=== PATIENT | female | born 1955 | race Caucasian/White ===

== ENCOUNTER 2024-05-18 04:17 | Inpatient (IN) | payer OTHER, SELFPAY ==
[2024-05-17 20:26] VITALS: BP 116/79
[2024-05-17 20:51] LABS: % Basophils 0.4 % (0-2); % Eosinophils 0.3 % (0-6); % Immature Granulocytes 0.7 % (0-0.5); % Lymphocytes 3.5 % (20.5-51.1); % Neutrophils 89.1 % (42.2-75.2); Absolute Basophils 0.1 10^3/uL (0-0.2); Absolute Eosinophils 0.1 10^3/uL (0-0.7); Absolute Immature Granulocytes 0.1 10^3/uL (0-0.05); Absolute Lymphocytes 0.6 10^3/uL (1.2-3.4); Absolute Neutrophils 14.7 10^3/uL (1.4-6.5); Hematocrit 44.7 % (37.0-47.0); Hemoglobin 14.4 g/dL (12.0-16.0); Mean Corp Hgb Conc. 32.2 g/dL (33.0-37.0); Mean Corpuscular Hgb 29.1 pg (27.0-31.0); Mean Corpuscular Volume 90.5 fL (81.0-99.0); Mean Platelet Volume 9.7 fL (7.4-10.4); Nucleated Red Blood Cells % 0 %; Platelet Count 232 10^3/uL (130-400); Red Blood Cell Count 4.94 10^6/uL (4.20-5.40); Red Cell Dist. Width 13.2 % (11.5-14.5); White Blood Cell Count 16.4 10^3/uL (4.8-10.8)
[2024-05-17 21:15] LABS: NT-proBNP 118 pg/ml; Troponin I 0.021 ng/ml
[2024-05-17 21:18] LABS: ALT (SGPT) 38 U/L (0-35); AST (SGOT) 30 U/L (14-36); Albumin 3.7 g/dl (3.5-5.0); Alkaline Phosphatase 105 U/L (38-126); Blood Urea Nitrogen 23 mg/dl (7-17); Calcium 8.6 mg/dl (8.4-10.2); Carbon Dioxide 25 mmol/L (22-30); Chloride 100 mmol/L (98-107); Glucose 166 mg/dl (70-99); Potassium 4.6 mmol/L (3.5-5.1); Sodium 131 mmol/L (135-145); Total Bilirubin 0.6 mg/dl (0.2-1.3); Total Protein 6.4 g/dl (6.3-8.2); eGFR > 60.00
[2024-05-18] VITALS (15 sets, daily range): BP systolic 139–173; BP diastolic 61–100; BMI 32.5; BMI 32.7
[2024-05-18] MEDS: MORPHINE SULFATE 4 MG IV (00:30)
[2024-05-18] MEDS: TORADOL 15 MG IV ×2 (01:12→19:57)
[2024-05-18] MEDS: MAXIPIME 2000 MG IV (02:33)
--- NOTE | 2024-05-18 03:08 | ED.GENMED ---
History of Present Illness
General
Chief Complaint: Breathing Problem
Source: patient and spouse
Time Seen by Provider: 05/17/24 23:04
History of Present Illness
History of Present Illness:
68-year-old female with a history of rheumatoid arthritis on prednisone who presents with pleuritic pain to the left side. She states she feels a little bit short of breath but notes significant pain on the left side. states she has been
coughing. No fevers. Is a diabetic.
Past History
Past History
ED Past Medical History: NIDDM and Other (Rheumatoid arthritis, GERD)
Phy Exam
Physical Exam
Physical Exam:
CONSTITUTIONAL Patient alert and oriented to person, place and time. Well-appearing. Vital signs reviewed.
HEAD atraumatic, normocephalic.
EYES eyelids normal to inspection, Extraocular muscles intact, Conjunctiva normal, Sclera normal.
NECK normal range of motion, Trachea midline, no jugular venous distention.
RESPIRATORY CHEST No respiratory distress noted, Chest expansion equal, crackles at the left base
CARDIOVASCULAR regular and tachycardic, Heart sounds normal.
ABDOMEN abdomen nontender, Bowel sounds normal. No distention.
BACK normal inspection, no obvious deformities
UPPER EXTREMITY range of motion normal, Motor strength normal, no cyanosis, no edema.
LOWER EXTREMITY range of motion normal, Motor strength normal, no cyanosis, no edema.
NEURO Speech normal, No focal motor deficits, [place] coma scale 15, Memory normal, Cranial Nerves intact to screening exam.
SKIN skin warm, dry, and normal in color.
Scores
Heart Failure Risk
Heart Failure Risk Score: Not Applicable
Course
Orders/Labs/Results
Orders:
Orders
05/17/24 20:34
Electrocardiogram (*1) Urgent
Reason for Study: Other
Other Reason for Exam: Respiratory Distress
Cardiac Monitoring- Treatment ONCE
EKG- Treatment ONCE
IV Insert/Care/Rem.- Treatment PRN
CR Chest - 2 Views Urgent
Comment:
Reason For Exam: respiratory distress
O2 Therapy [RESP] Urgent
Titrate/Wean O2 to maintain O2 sat greater than (%): 93
Special Instructions: TO MAINTAIN CONTINUOUS O2 SATS >/= 93%
Pulse Ox/cont/shift [RESP] Urgent
Quantity: 1
Special Instructions: continuous pulse ox
05/17/24 20:43
Complete Blood Count/With Diff Urgent
Comprehensive Metabolic Panel Urgent
NT-proBNP Urgent
Troponin I Urgent
05/18/24 00:11
CT Chest PE Study Urgent
Comment:
Reason For Exam: L pleuritic pain, sob, tachycardia
Morphine Sulfate 4 mg IV NOW STA
05/18/24 01:03
Ketorolac [Toradol] 15 mg IV NOW STA
05/18/24 02:15
Cefepime HCl [Maxipime] 2,000 mg IV NOW STA
05/18/24 03:24
Vancomycin [Vancocin] 2,000 mg 0.9% Sodium Chloride 500 ml [Nss] 500 ml IV NOW
05/18/24 03:58
Admit/Transfer Patient As Directed
Co-Sign Provider:
Level of Care: Inpatient admission
Assign to:: Telemetry
Physician / Group: Ramone
Diagnosis: Pneumonia, Pleurisy
Reason for Telemetry: Chest Pain syndromes
Date to Stop Telemetry: 05/20/24
Time to Stop Telemetry: 11:00
Reason for Hospitalization: Pneumonia, Pleurisy
Expected length of stay greater than two midnights?: Yes
ELOS- Estimated Length of Stay in days: 3
I certify the patient meets the requirements for IP care: Yes
HYDROmorphone [Dilaudid] 1 mg IV NOW STA
05/18/24 03:59
Code Status As Directed
Resuscitation Status: Full Code
PRN Pain Medication Management As Directed
May give lesser potent ordered pain med per pt: Yes
preference::
Protocol:: Medication orders for pain may be administered in a
manner that supports deferring to patient preference
when the pt is:
- Requesting an ordered lesser potent pain medication.
Least to most potent pain medications are defined
as: acetaminophen < NSAID < tramadol < opioids
(morphine, oxycodone, hydromorphone).
- Requesting a lesser dose of the same medication IF
ORDERED.
- Requesting a less intrusive route of administration
if both routes are prescribed by the provider (PO <
IV).
05/18/24 05:06
COVID-19 Antigen Urgent
Source: Nasal Swab
Lactic Acid Q4H
Comment: CANCEL 2nd LACTIC ACID IF 1st LACTIC ACID IS LESS THAN 2
Blood Culture Q30M
UZMA Source: Blood/Venous
Specimen Description:
Influenza A+B Rapid Molecular Urgent
UZMA Source: Nasal Swab
Specimen Description:
05/18/24 05:07
Erythrocyte Sed Rate Routine
05/18/24 05:38
Urinalysis Reflex To Culture Urgent
Date Specimen was Collected: 05/18/24
Time Specimen was Collected: 05:26
05/18/24 Breakfast
2000 calorie (17 carb) Diabetic
At Your Request: Full Participation
Does patient need a safe tray?: No
05/18/24 06:11
0.9% Sodium Chloride 1000 ml [Nss] 1,000 ml IV 100 mls/hr
Acetaminophen [Tylenol] 650 mg PO Q4HPRN PRN
Albuterol Nebs [Ventolin Nebules] 2.5 mg INH R Q4HPRN PRN
Dextrose 50%-Water [Dextrose 50% Syringe] 12.5 grams IV [id number] PRN
Glucagon [GlucaGen] 1 mg IM PRN PRN
HYDROmorphone [Dilaudid] 0.5 mg IV Q4HPRN PRN
Ketorolac [Toradol] 15 mg IV Q6HPRN PRN
05/18/24 06:11
Activity As Directed
Activity Level: Ambulate
With Assistance
Bedside Glucose Monitoring As Directed
Frequency: AC&HS
Additional Instructions:: Change to q6h if pt on TPN, tube feeding or not eating
EKG with chest pain [ECG as needed] As Directed
ECG as needed for:: Chest Pain
I/O [Intake/ Output] As Directed
Frequency: Per unit guidelines
Vital Signs As Directed
Frequency: Per unit guidelines
Weight As Directed
Frequency: Daily
Oxygen Therapy [O2 Therapy] [RESP] Routine
Titrate/Wean O2 to maintain O2 sat greater than (%): 94
DX Deep Vein Thrombosis Video Routine
05/18/24 07:30
Insulin Aspart Corrective Low [Novolog Flexpen-Low Resistance] See Protocol SC AC
05/18/24 08:00
Doxycycline [Vibramycin] 100 mg PO Q12
Prednisone [Deltasone] 5 mg PO DAILY
05/18/24 10:00
CefTRIAXone [Rocephin] 1,000 mg IV Q24H
05/18/24 18:00
Enoxaparin Sodium [Lovenox] 40 mg SC QPM
05/18/24 22:00
Zolpidem Tartrate [Ambien] 10 mg PO HS
05/20/24 11:00
DC Protocol for Telemetry ONCE
Abnormal Lab Results
05/17/24
20:43
WBC 16.4 H 10^3/uL
(4.8-10.8)
MCHC 32.2 L g/dL
(33.0-37.0)
Abs Immat Gran (auto) 0.1 H 10^3/uL
(0-0.05)
Absolute Neuts (auto) 14.7 H 10^3/uL
(1.4-6.5)
Absolute Lymphs (auto) 0.6 L 10^3/uL
(1.2-3.4)
Absolute Monos (auto) 1.0 H 10^3/uL
(0.1-0.6)
Immature Gran % 0.7 H %
(0-0.5)
Neutrophils % 89.1 H %
(42.2-75.2)
Lymphocytes % 3.5 L %
(20.5-51.1)
Sodium 131 L mmol/L
(135-145)
BUN 23 H mg/dl
(7-17)
Glucose 166 H mg/dl
(70-99)
ALT 38 H U/L
(0-35)
05/17/24 20:43
05/17/24 20:43
Vital Signs
Initial and Last Documented VS:
Initial Vital Signs
Temp Pulse Resp BP Pulse Ox
98.4 F 114 20 116/79 97
05/17/24 20:26 05/17/24 20:26 05/17/24 20:26 05/17/24 20:26 05/17/24 20:26
Last Documented Vital Signs
Temp Pulse Resp BP Pulse Ox
98.0 F 101 16 173/91 94
05/18/24 23:00 05/18/24 23:00 05/18/24 23:00 05/18/24 23:00 05/18/24 23:00
MDM/Problems Addressed
Differential Diagnosis Includes:
PE, pleural effusion, CHF, pneumonia, pneumothorax
MDM/Problems Addressed:
Bilateral pneumonia
*Radiology
Radiology exam reviewed: preliminary read by ED provider (Infiltrative process noted)
*Pulse Oximetry
Patient hypoxic: yes
*[employer] Interpretation
Rate: tachycardiac
Interpretation: abnormal
Rhythm: sinus
*Critical Care Note
Total Time (30-74mins, 75-104mins- exclusive of procedures): Not Applicable
Data Reviewed
Source: patient and spouse
Prescriptions/Medications Considered But Not Given:
Consider anticoagulation but negative PE study
Patient Management
Discussion with other providers: Hospitalist
Escalation/DeEscalation of care consider admission/obs:
No PE. Infiltrative process noted with white count of 16.4. Is on prednisone daily. She is at risk due to her history of diabetes and prednisone therapy with treatment for rheumatoid arthritis. IV antibiotics. Admit
ED Attending Note
-
Portions of this chart may have been created with voice recognition software.� Occasional wrong word or��sound alike� substitutions may have occurred due to the inherent limitations of voice recognition software.
Discharge Plan
Departure
Patient Disposition: Admit
Date of Disposition: 05/18/24
Time of Disposition: 03:11
Admit to: Telemetry
Presentation/result/management discussed w/ accepting MD/DO: Hospitalist
Discharge Problem:
Pneumonia
Interventions
Interventions:
*Risk Screen - Suicide Last Done: 05/17/24 20:26
*General Assessment Last Done: 05/17/24 20:26
*Neglect/Abuse Screening Last Done: 05/17/24 20:26
ED- Fall Risk Assessment Last Done: 05/17/24 20:26
*ED COVID-19 Vaccine History Last Done: 05/17/24 20:26
*Nursing Disposition Last Done: 05/18/24 14:25
ED- Cardiac Assessment Last Done: 05/18/24 00:04
ED- Pulmonary Assessment Last Done: 05/18/24 00:05
[2024-05-18] MEDS: VANCOCIN 540 MG IV (03:32)
--- NOTE | 2024-05-18 04:06 | HPS.HSE ---
Family Physician
-
Family Physician: Kim Logan
Chief Complaint
-
Chest Pain
History of Present Illness
Patient is a 68y F with PMH significant for DM-II and RA who presents to ED complaining of left sided chest pain. Patient states that she has had a mild, non-productive cough for about a week or so. She has not felt ill including fevers /
chills, SOB, etc. This afternoon around 4 PM, she developed sharp, stabbing pain in the L flank / chest. Pain was much worse with breathing, coughing, movement, etc. Her symptoms progressed throughout the afternoon and patient ultimately
presented to the ED for evaluation. She feels SOB due to inability to take a full breath. She denies any prior history of similar symptoms. She denies any known sick contacts.
No GI or complaints.
Medical History
Past Medical History
Past Medical History: Reports Other
Additional Past Medical History:
Rheumatoid Arthritis
DM-II
Breast Cancer s/p Lumpectomy and XRT (> 5 years removed)
Past Surgical History: Reports Other
Additional Past Surgical History:
Right Lumpectomy
Trigeminal Nerve Surgery
Social History
Tobacco: Former Smoker (Quit smoking 20+ years ago. Approx 20+ pack years total use.)
Alcohol: None
Drug: None
Personal:
Living: With Family
Family History
Family History: Not pertinent
Allergies / Home Medications
Allergies reflects when Allergies were last updated in [facility].
Home Medications with original date entered in [facility]
Allergy/Medication List:
Allergies
Allergy/AdvReac Type Severity Reaction Status Date / Time
Penicillins Allergy Unknown Verified 05/17/24 20:25
Home Medications
leflunomide 20 mg tablet 40 mg PO DAILY 05/18/24
pioglitazone 30 mg tablet 30 mg PO DAILY 05/18/24
prednisone 5 mg tablet 5 mg PO DAILY 05/18/24
zolpidem 12.5 mg tablet,extended release,multiphase 12.5 mg PO HS 05/18/24
Review of Systems
-
History Source: Patient
A 12 point ROS was completed and negative except as noted: Yes
Constitutional: Denies Fever, Fatigue or Chills
EENT: Denies Sore Throat
Respiratory: Reports Cough and Trouble Breathing; Denies Hemoptysis
Cardiac: Reports Chest Pain; Denies Diaphoresis, Palpitations or Syncope
Abdomen/GI: Denies Abdominal Pain, Nausea, Vomiting, Diarrhea or Bloody Stools
: Reports Flank Pain; Denies Dysuria or Frequency
Musculoskeletal: Denies Joint Pain or Edema
Neurological: Denies Dizzy or Headache
Psych: Denies Depression or Anxiety
Physical Exam
Vital Signs
Vital Signs
Temp Pulse Resp BP Pulse Ox
98.4 F 111 19 150/83 91
05/17/24 20:26 05/18/24 03:15 05/18/24 03:15 05/18/24 03:00 05/18/24 03:15
Physical Exam
General: Other (68y F in moderate distress due to pain.)
HEENT: Moist mucous membranes and PERRLA
Respiratory: Other (Decreased BS with few rales at both bases. Decreased inspiratory effort due to pain.)
Cardiac: S1/S2 and Tachycardia; No Murmur
GI: Soft, Non Tender, Non Distended and Normal Bowel Sounds
Musculoskeletal: No Clubbing, No Cyanosis and No Edema
Neuro: AO x 3
Laboratory Results
-
05/17/24 20:43
05/17/24 20:43
Laboratory Results
Total Bilirubin 0.6 mg/dl (0.2-1.3) 05/17/24 20:43
AST 30 U/L (14-36) 05/17/24 20:43
ALT 38 U/L (0-35) H 05/17/24 20:43
Alkaline Phosphatase 105 U/L (38-126) 05/17/24 20:43
Troponin I 0.021 ng/ml 05/17/24 20:43
Impression/Plan
-
A/P: Patient is a 68y F with PMH significant for RA and DM-II who presents to ED complaining of L chest pain.
LLL Pneumonia
Sepsis secondary to the above
Pleuritic Pain secondary to the above
- Admit for further evaluation and treatment.
- Patient presents with tachycardia, tachypnea, leukocytosis and imaging consistent with L base pneumonia.
- CT in the ED with L > R base infiltrate.
- Abx with ceftriaxone and doxycycline for now.
- Supportive care including pain control, anti-inflammatories, etc.
- Check COVID / flu for completeness.
- Follow for clinical improvement.
Rheumatoid Arthritis
- Stable. No current joint pains, etc.
- Continue usual prednisone dose with no changes.
- Consider stress dosing if any evidence of hemodynamic compromise.
- Hold leflunomide given acute infection.
DM-II
- Stable. Hold PO medication acutely.
- Follow glucose and cover with SSI as needed.
- Update A1C.
DVT Prophylaxis: Lovenox
Code Status: Full
[2024-05-18] MEDS: DILAUDID 1 MG IV (05:08)
[2024-05-18 05:49] LABS: COVID-19 Antigen Negative (Negative)
[2024-05-18 05:54] LABS: Lactic Acid 1.6 mmol/L (0.7-2.0)
[2024-05-18 06:21] LABS: Urine Albumin Trace (Neg - Trace); Urine Bilirubin Negative (Negative); Urine Character Clear (Clear); Urine Color Yellow; Urine Glucose Trace (Negative); Urine Ketone Negative (Negative); Urine Leukocyte Negative (Negative); Urine Nitrite Positive (Negative); Urine Occult Blood Negative (Negative); Urine Urobilinogen Negative (Neg - 1+)
[2024-05-18 06:37] LABS: Erythrocyte Sed Rate 34 mm/hour (0-20)
[2024-05-18] MEDS: NSS 1000 IV (06:41)
[2024-05-18 07:02] LABS: Urine Squamous Cell >30 /LPF (Few)
[2024-05-18 07:03] LABS: Urine Bacteria Few (Negative)
--- NOTE | 2024-05-18 08:11 | W.PN.HOSP.TC ---
Addendum entered and electronically signed by Franck Leyva MD 05/18/24 10:26:
#Acute uncomplicated diverticulitis
stop Ceftriaxone - start Zosyn
Colonoscopy in 6-8 weeks
Original Note:
Today's Communication/Plan
-
See PN
Assessment / Plan
Assessment / Plan
68yo F with PMHx of insomnia, RA on lefunomide and chronic prednisone, DM came with c/o cough for 5 days and subsequent strong L subcostal pain, pleuritic, poorly responding to pain meds in ED. Managed for possible pneumonia with L small pleural
effusion
A/P:
#Possible bibasilar pneumonia
Ceftriaxone/Rocephin
COVID-19 and influenza neg
Check Legionella, s.peumonia urinary Ag
Sputum Cx if possible
CT reviewed - significant patchy opacification on LLL of the lung
leukocytosis is unreliable indicator with chronic prednisone
#L subcostal pain
radiating to L flanck and groin, pleuritic
Abd CT without contrast with concern for nephrolithiasis as well
Pain mgmt
CT chest without significant osseous abnormality - only bone island on thoracic spine
dedicated rib XR
#Cannot r/o UTI
cont Ceftriaxone pending Ucx
#RA
cont home meds
#mild ALT elevation
follow LFT
#mild hyponatremia
follow BMP
DVT ppx lovenox
GI ppx pantoprazole
Full code
I have spent at least 59min reviewing the chart, test results and providing direct patient care
Anticipated Discharge: 24 - 48 hours
Subjective/Interval History
-
Date of Service: May 18, 2024
Objective Data
-
Labs:
Laboratory Results
05/17/24
20:43
WBC 16.4 H
Hgb 14.4
Hct 44.7
Plt Count 232
Sodium 131 L
Potassium 4.6
Chloride 100
Carbon Dioxide 25
BUN 23 H
Creatinine 0.7
Glucose 166 H
Calcium 8.6
Total Bilirubin 0.6
AST 30
ALT 38 H
Alkaline Phosphatase 105
Vital Signs:
Vital Signs
Temp Pulse Resp BP Pulse Ox
98 F 109 15 144/78 91
05/18/24 07:59 05/18/24 07:45 05/18/24 07:45 05/18/24 07:00 05/18/24 03:15
I&O
05/17/24 05/18/24 05/19/24
06:59 06:59 06:59
Intake Total 1120 / 1120
Balance 1120 / 1120
Review of Systems
-
History Source: Patient
All other systems: Reviewed and negative
Respiratory: Reports Pleurisy (L)
Physical Exam
-
General: Well Developed and Pain
HEENT: Normocephalic
Respiratory: Clear to Auscultation
GI: Soft, Nondistended and Tender (LLQ)
Genito-urinary: Costovertebral Angle Tend (L)
Musculoskeletal: No Clubbing, No Cyanosis and No Edema
Skin: Warm
Neuro: Awake, Alert, Oriented and AO x 3
Psych: Calm
[2024-05-18 09:14] LABS: Glucose - Point of Care 181 mg/dl (70-99)
[2024-05-18] MEDS: DELTASONE 5 MG PO (10:38)
[2024-05-18] MEDS: VIBRAMYCIN 100 MG PO ×2 (10:38→19:53)
[2024-05-18] MEDS: NOVOLOG FLEXPEN-LOW RESISTANCE 1 UNITS SC (10:38)
[2024-05-18] MEDS: ZOSYN 50 IV ×3 (12:04→23:02)
[2024-05-18 13:44] LABS: Glucose - Point of Care 146 mg/dl (70-99)
[2024-05-18] MEDS: NOVOLOG FLEXPEN-LOW RESISTANCE SC ×2 (13:44→17:35)
--- NOTE | 2024-05-18 14:53 | PTCARENOTE ---
Received pt from ED @ 5075. Pt ambulated from stretcher to bed without assist. AAOx3, VSS.
[2024-05-18] MEDS: ZOFRAN 4 MG IV (16:06)
[2024-05-18] MEDS: DILAUDID 0.5 MG IV (16:07)
[2024-05-18 16:57] LABS: Glucose - Point of Care 101 mg/dl (70-99)
[2024-05-18] MEDS: LOVENOX 40 MG SC (17:38)
[2024-05-18 21:14] LABS: Glucose - Point of Care 126 mg/dl (70-99)
[2024-05-18] MEDS: AMBIEN 10 MG PO (23:02)
[2024-05-19 03:00] VITALS: BP 179/94
[2024-05-19] MEDS: ZOFRAN 4 MG IV (04:24)
[2024-05-19] MEDS: DILAUDID 0.5 MG IV (04:25)
[2024-05-19 06:17] VITALS: BMI 32.7
[2024-05-19] MEDS: ZOSYN 50 IV ×4 (06:34→23:03)
[2024-05-19 07:06] LABS: % Basophils 0.5 % (0-2); % Immature Granulocytes 0.9 % (0-0.5); % Lymphocytes 12.8 % (20.5-51.1); % Monocytes 9.4 % (1.7-9.3); % Neutrophils 73.4 % (42.2-75.2); Absolute Basophils 0.1 10^3/uL (0-0.2); Absolute Eosinophils 0.3 10^3/uL (0-0.7); Absolute Immature Granulocytes 0.1 10^3/uL (0-0.05); Absolute Lymphocytes 1.3 10^3/uL (1.2-3.4); Absolute Neutrophils 7.5 10^3/uL (1.4-6.5); Hematocrit 38.5 % (37.0-47.0); Hemoglobin 12.6 g/dL (12.0-16.0); Mean Corp Hgb Conc. 32.7 g/dL (33.0-37.0); Mean Corpuscular Hgb 29.5 pg (27.0-31.0); Mean Corpuscular Volume 90.2 fL (81.0-99.0); Mean Platelet Volume 9.9 fL (7.4-10.4); Nucleated Red Blood Cells % 0 %; Platelet Count 197 10^3/uL (130-400); Red Blood Cell Count 4.27 10^6/uL (4.20-5.40); Red Cell Dist. Width 13.4 % (11.5-14.5); White Blood Cell Count 10.2 10^3/uL (4.8-10.8)
[2024-05-19 07:24] VITALS: BP 140/75
[2024-05-19 07:42] LABS: Procalcitonin 0.19 ng/ml (0.0-0.25)
[2024-05-19 08:00] LABS: Glucose - Point of Care 116 mg/dl (70-99)
[2024-05-19] MEDS: VIBRAMYCIN 100 MG PO ×2 (08:06→19:54)
[2024-05-19] MEDS: NOVOLOG FLEXPEN-LOW RESISTANCE SC ×3 (08:06→16:47)
[2024-05-19] MEDS: PROTONIX 40 MG PO (08:06)
[2024-05-19] MEDS: DELTASONE 5 MG PO (08:06)
--- NOTE | 2024-05-19 11:19 | W.PN.HOSP.TC ---
Today's Communication/Plan
-
cont Zosyn/Doxy
repeat XR in AM - if persistent effusion - patient will be agreeable for thoracentesis
Assessment / Plan
Assessment / Plan
68yo F with PMHx of insomnia, RA on lefunomide and chronic prednisone, DM came with c/o cough for 5 days and subsequent strong L subcostal pain, pleuritic, poorly responding to pain meds in ED. Managed for possible pneumonia with L small pleural
effusion
A/P:
#Possible bibasilar pneumonia with small L pleural effusion
Abx
COVID-19 and influenza neg
Check Legionella, s.pneumonia urinary Ag
Sputum Cx if possible
CT reviewed - significant patchy opacification on LLL of the lung with small effusion - serial Xr, if persist, might need thoracentesis
leukocytosis is unreliable indicator with chronic prednisone
#Acute uncomplicated diverticulitis
stop Ceftriaxone - start Zosyn
Colonoscopy in 6-8 weeks
#L subcostal pain
PE neg
#UTI ruled out
Ucx neg
#RA
cont home meds
#mild ALT elevation
follow LFT
#mild hyponatremia
follow BMP
DVT ppx lovenox
GI ppx pantoprazole
Full code
I have spent at least 39min reviewing the chart, test results and providing direct patient care
Anticipated Discharge: > 48 hours
Subjective/Interval History
-
Date of Service: May 19, 2024
Objective Data
-
Labs:
Laboratory Results
05/19/24
06:58
WBC 10.2
Hgb 12.6
Hct 38.5
Plt Count 197
Vital Signs:
Vital Signs
Temp Pulse Resp BP Pulse Ox
97.8 F 101 18 140/75 92
05/19/24 07:24 05/19/24 07:24 05/19/24 07:24 05/19/24 07:24 05/19/24 07:24
I&O
05/18/24 05/19/24 05/20/24
06:59 06:59 06:59
Intake Total 1120 / 1120 1440 / 1440
Balance 1120 / 1120 1440 / 1440
[2024-05-19 11:33] VITALS: BP 172/98
[2024-05-19 11:55] LABS: Glucose - Point of Care 143 mg/dl (70-99)
[2024-05-19] MEDS: TORADOL 15 MG IV (13:36)
--- NOTE | 2024-05-19 14:09 | CM ---
Patient seen at bedside
IA completed.
Lives in a 1 story home with , 1 step to enter
PLOF: independent, no device
Denies DME
Uli BUNN in past, denies rehab
denies insecurities
no needs anticipated
PCP: Desirae Logan
Pharmacy: [facility]
PLAN: home, no needs anticipated
[2024-05-19 15:29] VITALS: BP 129/68
[2024-05-19 16:16] LABS: Glucose - Point of Care 128 mg/dl (70-99)
[2024-05-19] MEDS: LOVENOX 40 MG SC (17:45)
[2024-05-19 19:32] VITALS: BP 146/74
[2024-05-19] MEDS: AMBIEN 10 MG PO (21:21)
[2024-05-19 21:24] LABS: Glucose - Point of Care 122 mg/dl (70-99)
[2024-05-19 23:00] VITALS: BP 149/83
[2024-05-20] MEDS: DILAUDID 0.5 MG IV (02:56)
[2024-05-20 03:01] VITALS: BP 143/80
[2024-05-20] MEDS: ZOFRAN 4 MG IV (03:01)
[2024-05-20] MEDS: ZOSYN 50 IV ×4 (05:01→23:33)
[2024-05-20 06:00] VITALS: BMI 32.0
[2024-05-20 07:42] VITALS: BP 141/83
[2024-05-20 08:11] LABS: Glucose - Point of Care 124 mg/dl (70-99)
[2024-05-20 08:29] LABS: % Basophils 0.6 % (0-2); % Eosinophils 4.3 % (0-6); % Lymphocytes 15.3 % (20.5-51.1); % Monocytes 8.2 % (1.7-9.3); % Neutrophils 70.6 % (42.2-75.2); Absolute Basophils 0.1 10^3/uL (0-0.2); Absolute Eosinophils 0.4 10^3/uL (0-0.7); Absolute Immature Granulocytes 0.1 10^3/uL (0-0.05); Absolute Lymphocytes 1.4 10^3/uL (1.2-3.4); Absolute Monocytes 0.7 10^3/uL (0.1-0.6); Absolute Neutrophils 6.2 10^3/uL (1.4-6.5); Hematocrit 39.6 % (37.0-47.0); Hemoglobin 12.5 g/dL (12.0-16.0); Mean Corp Hgb Conc. 31.6 g/dL (33.0-37.0); Mean Corpuscular Hgb 28.9 pg (27.0-31.0); Mean Corpuscular Volume 91.5 fL (81.0-99.0); Mean Platelet Volume 10.4 fL (7.4-10.4); Nucleated Red Blood Cells % 0 %; Platelet Count 226 10^3/uL (130-400); Red Blood Cell Count 4.33 10^6/uL (4.20-5.40); Red Cell Dist. Width 13.2 % (11.5-14.5); White Blood Cell Count 8.8 10^3/uL (4.8-10.8)
[2024-05-20] MEDS: NOVOLOG FLEXPEN-LOW RESISTANCE SC (08:29)
[2024-05-20] MEDS: VIBRAMYCIN 100 MG PO ×2 (08:30→21:28)
[2024-05-20] MEDS: PROTONIX 40 MG PO (08:30)
[2024-05-20] MEDS: DELTASONE 5 MG PO (08:31)
[2024-05-20] MEDS: TYLENOL 650 MG PO (08:36)
[2024-05-20 09:07] LABS: ALT (SGPT) 49 U/L (0-35); AST (SGOT) 34 U/L (14-36); Albumin 2.8 g/dl (3.5-5.0); Alkaline Phosphatase 99 U/L (38-126); Blood Urea Nitrogen 19 mg/dl (7-17); Calcium 8.1 mg/dl (8.4-10.2); Carbon Dioxide 27 mmol/L (22-30); Chloride 101 mmol/L (98-107); Estimated Creatinine Clearance 86 ml/min; Glucose 101 mg/dl (70-99); Potassium 4.3 mmol/L (3.5-5.1); Sodium 135 mmol/L (135-145); Total Bilirubin 0.7 mg/dl (0.2-1.3); Total Protein 5.1 g/dl (6.3-8.2); eGFR > 60.00
[2024-05-20 09:32] VITALS: BP 161/83; PULSE 105; O2SAT 94
[2024-05-20 11:05] VITALS: BP 155/83
[2024-05-20 11:18] LABS: Glucose - Point of Care 214 mg/dl (70-99)
[2024-05-20] MEDS: LIDOCAINE 4% PATCH 1 PATCH TOPICAL (12:34)
[2024-05-20] MEDS: NOVOLOG FLEXPEN-LOW RESISTANCE 2 UNITS SC (12:39)
--- NOTE | 2024-05-20 13:26 | W.PN.HOSP.TC ---
Today's Communication/Plan
-
Monitor vital signs see plan
Pain control
Continue with antibiotics
check MRSA screen
Assessment / Plan
Assessment / Plan
68yo F with PMHx of insomnia, RA on lefunomide and chronic prednisone, DM came with c/o cough for 5 days and subsequent strong L subcostal pain, pleuritic, poorly responding to pain meds in ED. Managed for possible pneumonia with L small pleural
effusion
A/P:
#Possible bibasilar pneumonia with small L pleural effusion
Abx
COVID-19 and influenza neg
Legionella, strep negative
Sputum Cx if possible
CT reviewed - significant patchy opacification on LLL of the lung with small effusion -x-ray of 05/20 very tiny little effusion however much improved. Advised patient to follow-up with repeat imaging outpatient and if does not improve then likely
will need Thora
leukocytosis is unreliable indicator with chronic prednisone
Lidocaine patch
check MRSA screen
#Acute uncomplicated diverticulitis
Continue Zosyn
Colonoscopy in 6-8 weeks
#L subcostal pain
PE neg
#UTI ruled out
Ucx neg
#RA
cont home meds
#mild ALT elevation
follow LFT
#mild hyponatremia
follow BMP
DVT ppx lovenox
GI ppx pantoprazole
Full code
General: Well Developed and Pain
HEENT: Normocephalic
Respiratory: Clear to Auscultation
GI: Soft, Nondistended and Tender (LLQ)
Genito-urinary: Costovertebral Angle Tend (L)
Musculoskeletal: No Clubbing, No Cyanosis and No Edema
Skin: Warm
Neuro: Awake, Alert, Oriented and AO x 3
Psych: Calm
Anticipated Discharge: 24 - 48 hours
Subjective/Interval History
-
Date of Service: May 20, 2024
Still has some pleuritic chest pain
Objective Data
-
Labs:
Laboratory Results
05/20/24
06:48
WBC 8.8
Hgb 12.5
Hct 39.6
Plt Count 226
Sodium 135
Potassium 4.3
Chloride 101
Carbon Dioxide 27
BUN 19 H
Creatinine 0.8
Glucose 101 H
Calcium 8.1 L
Total Bilirubin 0.7
AST 34
ALT 49 H
Alkaline Phosphatase 99
Vital Signs:
Vital Signs
Temp Pulse Resp BP Pulse Ox
97.8 F 92 19 155/83 96
05/20/24 11:05 05/20/24 11:05 05/20/24 11:05 05/20/24 11:05 05/20/24 11:05
I&O
05/19/24 05/20/24 05/21/24
06:59 06:59 06:59
Intake Total 1440 / 1440 760 / 760
Balance 1440 / 1440 760 / 760
[2024-05-20 15:18] VITALS: BP 149/69
[2024-05-20 16:21] LABS: Glucose - Point of Care 172 mg/dl (70-99)
[2024-05-20] MEDS: NOVOLOG FLEXPEN-LOW RESISTANCE 1 UNITS SC (17:38)
[2024-05-20] MEDS: LOVENOX 40 MG SC (17:39)
[2024-05-20] MEDS: AMBIEN 10 MG PO (21:27)
[2024-05-20 21:30] LABS: Glucose - Point of Care 127 mg/dl (70-99)
[2024-05-20] MEDS: ULTRAM 25 MG PO (21:36)
[2024-05-20 22:55] VITALS: BP 123/85
[2024-05-21] MEDS: ZOSYN 50 IV ×4 (05:47→23:13)
[2024-05-21] MEDS: DILAUDID 0.5 MG IV (05:55)
[2024-05-21] MEDS: ZOFRAN 4 MG IV ×2 (05:57→20:15)
[2024-05-21 06:37] VITALS: BMI 31.7
[2024-05-21 07:37] VITALS: BP 110/80
[2024-05-21] MEDS: VIBRAMYCIN 100 MG PO ×2 (07:49→19:42)
[2024-05-21] MEDS: DELTASONE 5 MG PO (07:49)
[2024-05-21] MEDS: LIDOCAINE 4% PATCH 1 PATCH TOPICAL ×2 (07:49→11:02)
[2024-05-21] MEDS: PROTONIX 40 MG PO (07:49)
[2024-05-21] MEDS: TYLENOL 650 MG PO (07:56)
[2024-05-21 07:59] LABS: Glucose - Point of Care 120 mg/dl (70-99)
[2024-05-21] MEDS: NOVOLOG FLEXPEN-LOW RESISTANCE SC ×3 (08:07→17:16)
[2024-05-21 08:38] LABS: % Basophils 0.6 % (0-2); % Eosinophils 4.1 % (0-6); % Immature Granulocytes 1.4 % (0-0.5); % Lymphocytes 16.8 % (20.5-51.1); % Monocytes 7.9 % (1.7-9.3); % Neutrophils 69.2 % (42.2-75.2); Absolute Basophils 0.1 10^3/uL (0-0.2); Absolute Eosinophils 0.4 10^3/uL (0-0.7); Absolute Immature Granulocytes 0.1 10^3/uL (0-0.05); Absolute Lymphocytes 1.6 10^3/uL (1.2-3.4); Absolute Monocytes 0.8 10^3/uL (0.1-0.6); Absolute Neutrophils 6.6 10^3/uL (1.4-6.5); Hematocrit 42.2 % (37.0-47.0); Hemoglobin 13.6 g/dL (12.0-16.0); Mean Corp Hgb Conc. 32.2 g/dL (33.0-37.0); Mean Corpuscular Hgb 29.3 pg (27.0-31.0); Mean Corpuscular Volume 90.9 fL (81.0-99.0); Mean Platelet Volume 10.4 fL (7.4-10.4); Nucleated Red Blood Cells % 0 %; Platelet Count 254 10^3/uL (130-400); Red Blood Cell Count 4.64 10^6/uL (4.20-5.40); Red Cell Dist. Width 13.3 % (11.5-14.5); White Blood Cell Count 9.5 10^3/uL (4.8-10.8)
[2024-05-21 09:05] LABS: Blood Urea Nitrogen 18 mg/dl (7-17); Carbon Dioxide 28 mmol/L (22-30); Chloride 100 mmol/L (98-107); Estimated Creatinine Clearance 98 ml/min; Glucose 118 mg/dl (70-99); Potassium 3.9 mmol/L (3.5-5.1); Sodium 136 mmol/L (135-145); eGFR > 60.00
[2024-05-21] MEDS: ULTRAM 25 MG PO ×3 (11:01→21:39)
[2024-05-21 11:11] LABS: Glucose - Point of Care 183 mg/dl (70-99)
--- NOTE | 2024-05-21 11:57 | PN.CDI ---
CDI
- -
CDI:
Physician Documentation Request
Admit Date: 05/18/24 04:17
Dear Doctor,
Please review the following and provide your response in the progress notes.
Clinical Indicators:
Documentation in the H&P record on 05/18/2024 includes the diagnosis of sepsis. The following clinical information was noted in the record:
Pt admitted with pneumonia.
05/18 H&P: 'LLL Pneumonia-Sepsis secondary to the above.'
05/20 Progress Note: 'leukocytosis is unreliable indicator with chronic prednisone'
Selected Entries
05/18/24
01:00 05/18/24
04:00 05/18/24
05:00
Pulse 114 115 111
Resp Rate 28 27 23
Laboratory Tests
05/17/24
20:43
WBC 16.4 H
Recognized standard criteria for this condition and other associated definitions:
�Sepsis
-Systemic manifestations of infection, with 2 or more SIRS criteria which include:
-Fever > 100.4��F or hypothermia < 96.8��F
-Leukocytosis WBC > 12,000 or leukopenia, WBC < 4,000, or > 10% bands
-Tachycardia- > 90 beats/minute
-Tachypnea- RR > 20 breaths/minute or PaCO2 < 32mmHg
Source: Merck Manual 2013
-Documentation should include the known or suspected organism, and the underlying infection, such as UTI or pneumonia
Based on the above information and the recognized standard SIRS criteria, please clarify if sepsis is still an accurate diagnosis, and reflective of the patient�s condition, to ensure quality of the medical record.
Please clarify in the Progress Notes:
Sepsis is/was present and is a clinical diagnosis
After study sepsis has been ruled out
Other
Use of terms such as suspected, likely, concern for, or probable (associated with a specific diagnosis that is being evaluated, monitored, or treated as if it exists) are acceptable and can be coded in the inpatient setting, when documented at the
time of discharge.
Thank you,
Bernarda Gibbs RN, BSN
CDI Specialist
[place] [facility]
Please use your independent medical judgment in providing your response.
[2024-05-21] MEDS: MORPHINE SULFATE 1 MG IV ×2 (12:16→19:42)
--- NOTE | 2024-05-21 12:37 | W.PN.HOSP.TC ---
Today's Communication/Plan
-
Monitor vitals
See plan
Check x-ray abdomen
Make tramadol standing
Trial of morphine
Lidocaine patch
Assessment / Plan
Assessment / Plan
68yo F with PMHx of insomnia, RA on lefunomide and chronic prednisone, DM came with c/o cough for 5 days and subsequent strong L subcostal pain, pleuritic, poorly responding to pain meds in ED. Managed for possible pneumonia with L small pleural
effusion
A/P:
#Possible bibasilar pneumonia with small L pleural effusion
Sepsis on admission likely 2/2 above
Abx
COVID-19 and influenza neg
Legionella, strep negative
Sputum Cx if possible
CT reviewed - significant patchy opacification on LLL of the lung with small effusion -x-ray of 05/20 very tiny little effusion however much improved. Advised patient to follow-up with repeat imaging outpatient and if does not improve then likely
will need Thora
Suspect pleurisy secondary to atelectasis and pneumonia. Still in pain. Tramadol now standing. Trial of morphine.
leukocytosis is unreliable indicator with chronic prednisone
Lidocaine patch
check MRSA screen
pain control
#Acute uncomplicated diverticulitis
given she still has pain ordered xray abdomen
Continue Zosyn
Colonoscopy in 6-8 weeks
#L subcostal pain
PE neg
#UTI ruled out
Ucx neg
#RA
cont home meds
#mild ALT elevation
follow LFT
#mild hyponatremia
follow BMP
DVT ppx lovenox
GI ppx pantoprazole
Full code
General: Well Developed and Pain
HEENT: Normocephalic
Respiratory: Clear to Auscultation
GI: Soft, Nondistended and Tender (LLQ)
Genito-urinary: Costovertebral Angle Tend (L)
Musculoskeletal: No Clubbing, No Cyanosis and No Edema
Neuro: Awake, Alert, Oriented and AO x 3
Psych: Calm
Anticipated Discharge: Within 24 hours
Subjective/Interval History
-
Date of Service: May 21, 2024
still has pain
Objective Data
-
Labs:
Laboratory Results
05/21/24
06:49
WBC 9.5
Hgb 13.6
Hct 42.2
Plt Count 254
Sodium 136
Potassium 3.9
Chloride 100
Carbon Dioxide 28
BUN 18 H
Creatinine 0.7
Glucose 118 H
Calcium 8.0 L
Vital Signs:
Vital Signs
Temp Pulse Resp BP Pulse Ox
98.2 F 96 18 110/80 96
05/21/24 07:37 05/21/24 07:37 05/21/24 07:37 05/21/24 07:37 05/21/24 07:37
I&O
05/20/24 05/21/24 05/22/24
06:59 06:59 06:59
Intake Total 760 / 760 700 / 700
Balance 760 / 760 700 / 700
--- NOTE | 2024-05-21 13:15 | CM ---
Chart reviewed. Care ongoing
Plan is for home at d/c.
[2024-05-21 15:01] VITALS: BP 154/81
[2024-05-21] MEDS: TYLENOL 1000 MG PO ×2 (16:52→21:39)
[2024-05-21 17:13] LABS: Glucose - Point of Care 129 mg/dl (70-99)
[2024-05-21] MEDS: LOVENOX 40 MG SC (17:17)
[2024-05-21] MEDS: AMBIEN 10 MG PO (21:39)
[2024-05-21 21:49] LABS: Glucose - Point of Care 106 mg/dl (70-99)
[2024-05-21 22:53] VITALS: BP 173/96
--- NOTE | 2024-05-21 23:50 | PTCARENOTE ---
Pt with continued LT back pain, and causes pt difficulty moving without shooting sharp pain. Pt medicated with Morphine 1mg IV as needed and Ultram 25mg po as standing order. After receiving Morphine, pt had a small bit of nausea and vomited up some
yellow bile. Medicated with Zofran 4mg IV with effect. Will continue to monitor.
[2024-05-22] MEDS: ULTRAM 25 MG PO ×4 (03:10→21:14)
[2024-05-22] MEDS: ZOSYN 50 IV ×4 (05:06→23:18)
[2024-05-22 05:38] VITALS: BMI 31.9
[2024-05-22 07:27] LABS: % Basophils 0.3 % (0-2); % Eosinophils 1.9 % (0-6); % Immature Granulocytes 0.9 % (0-0.5); % Monocytes 10.6 % (1.7-9.3); % Neutrophils 79.3 % (42.2-75.2); Absolute Eosinophils 0.2 10^3/uL (0-0.7); Absolute Immature Granulocytes 0.1 10^3/uL (0-0.05); Absolute Lymphocytes 0.9 10^3/uL (1.2-3.4); Absolute Monocytes 1.3 10^3/uL (0.1-0.6); Absolute Neutrophils 9.9 10^3/uL (1.4-6.5); Hematocrit 41.9 % (37.0-47.0); Hemoglobin 13.5 g/dL (12.0-16.0); Mean Corp Hgb Conc. 32.2 g/dL (33.0-37.0); Mean Corpuscular Hgb 29.2 pg (27.0-31.0); Mean Corpuscular Volume 90.5 fL (81.0-99.0); Mean Platelet Volume 9.9 fL (7.4-10.4); Nucleated Red Blood Cells % 0 %; Platelet Count 248 10^3/uL (130-400); Red Blood Cell Count 4.63 10^6/uL (4.20-5.40); Red Cell Dist. Width 13.2 % (11.5-14.5); White Blood Cell Count 12.4 10^3/uL (4.8-10.8)
[2024-05-22 07:34] VITALS: BP 153/84
[2024-05-22 07:38] LABS: Blood Urea Nitrogen 22 mg/dl (7-17); Calcium 8.2 mg/dl (8.4-10.2); Carbon Dioxide 28 mmol/L (22-30); Chloride 96 mmol/L (98-107); Estimated Creatinine Clearance 98 ml/min; Glucose 138 mg/dl (70-99); Potassium 4.1 mmol/L (3.5-5.1); Sodium 130 mmol/L (135-145); eGFR > 60.00
[2024-05-22 07:54] LABS: Glucose - Point of Care 137 mg/dl (70-99)
[2024-05-22] MEDS: NOVOLOG FLEXPEN-LOW RESISTANCE SC ×3 (08:32→16:29)
[2024-05-22] MEDS: TYLENOL 1000 MG PO ×3 (09:04→21:14)
[2024-05-22] MEDS: PROTONIX 40 MG PO (09:05)
[2024-05-22] MEDS: LIDOCAINE 4% PATCH TOPICAL ×2 (09:05)
[2024-05-22] MEDS: DELTASONE 5 MG PO (09:05)
[2024-05-22] MEDS: VIBRAMYCIN 100 MG PO ×2 (09:06→19:30)
[2024-05-22 12:30] LABS: Glucose - Point of Care 148 mg/dl (70-99)
--- NOTE | 2024-05-22 13:49 | W.PN.HOSP.TC ---
Today's Communication/Plan
-
Monitor vital signs see plan
Pain control
Continue with antibiotics
Encourage IS
add guaifenesin
Assessment / Plan
Assessment / Plan
68yo F with PMHx of insomnia, RA on lefunomide and chronic prednisone, DM came with c/o cough for 5 days and subsequent strong L subcostal pain, pleuritic, poorly responding to pain meds in ED. Managed for possible pneumonia with L small pleural
effusion
A/P:
#Possible bibasilar pneumonia with small L pleural effusion
Sepsis on admission likely 2/2 above
cw Abx
COVID-19 and influenza neg
Legionella, strep negative
Sputum Cx if possible
CT reviewed - significant patchy opacification on LLL of the lung with small effusion -x-ray of 05/20 very tiny little effusion however much improved. Advised patient to follow-up with repeat imaging outpatient and if does not improve then likely
will need Thora
Suspect pleurisy secondary to atelectasis and pneumonia. Still in pain. Tramadol now standing. Tylenol standing. Morphine as needed
leukocytosis is unreliable indicator with chronic prednisone
Lidocaine patch
check MRSA screen
pain control
Abdominal x-ray without any acute abnormality
#Acute uncomplicated diverticulitis
given she still has pain ordered xray abdomen
Continue Zosyn
Colonoscopy in 6-8 weeks
#L subcostal pain
PE neg
pain control
cw IS
#UTI ruled out
Ucx neg
#RA
cont home meds
#mild ALT elevation
follow LFT
#hyponatremia
follow BMP
DVT ppx lovenox
GI ppx pantoprazole
Full code
General: Well Developed and Pain
HEENT: Normocephalic
Respiratory: Clear to Auscultation
GI: Soft, Nondistended and Tender (LLQ)
Genito-urinary: Costovertebral Angle Tend (L)
Musculoskeletal: No Clubbing, No Cyanosis and No Edema
Neuro: Awake, Alert, Oriented and AO x 3
Psych: Calm
Anticipated Discharge: Within 24 hours
Subjective/Interval History
-
Date of Service: May 22, 2024
Pain appears to be improving a bit
Objective Data
-
Labs:
Laboratory Results
05/22/24
06:58
WBC 12.4 H
Hgb 13.5
Hct 41.9
Plt Count 248
Sodium 130 L
Potassium 4.1
Chloride 96 L
Carbon Dioxide 28
BUN 22 H
Creatinine 0.7
Glucose 138 H
Calcium 8.2 L
Vital Signs:
Vital Signs
Temp Pulse Resp BP Pulse Ox
99.4 F 99 18 153/84 94
05/22/24 07:34 05/22/24 07:34 05/22/24 07:34 05/22/24 07:34 05/22/24 08:15
I&O
05/21/24 05/22/24 05/23/24
06:59 06:59 06:59
Intake Total 700 / 700 1540 / 1540
Balance 700 / 700 1540 / 1540
[2024-05-22] MEDS: MUCINEX 1200 MG PO ×2 (14:29→19:30)
[2024-05-22] MEDS: ZOFRAN 4 MG IV (14:29)
[2024-05-22 15:08] VITALS: BP 144/74
[2024-05-22 16:17] LABS: Glucose - Point of Care 194 mg/dl (70-99)
[2024-05-22 16:38] VITALS: PULSE 100
[2024-05-22] MEDS: LOVENOX 40 MG SC (17:24)
[2024-05-22] MEDS: AMBIEN 10 MG PO (21:14)
[2024-05-22 22:12] LABS: Glucose - Point of Care 100 mg/dl (70-99)
[2024-05-22 23:00] VITALS: BP 153/78
[2024-05-23] MEDS: ULTRAM 25 MG PO ×4 (03:11→21:47)
[2024-05-23] MEDS: ZOSYN 50 IV ×3 (05:28→16:26)
[2024-05-23 05:55] VITALS: BMI 31.8
[2024-05-23 06:53] LABS: % Immature Granulocytes 1.5 % (0-0.5); % Lymphocytes 10.3 % (20.5-51.1); % Monocytes 10.8 % (1.7-9.3); % Neutrophils 72.4 % (42.2-75.2); Absolute Basophils 0.1 10^3/uL (0-0.2); Absolute Eosinophils 0.4 10^3/uL (0-0.7); Absolute Immature Granulocytes 0.2 10^3/uL (0-0.05); Absolute Lymphocytes 1.1 10^3/uL (1.2-3.4); Absolute Monocytes 1.2 10^3/uL (0.1-0.6); Absolute Neutrophils 7.7 10^3/uL (1.4-6.5); Hematocrit 40.8 % (37.0-47.0); Hemoglobin 13.5 g/dL (12.0-16.0); Mean Corp Hgb Conc. 33.1 g/dL (33.0-37.0); Mean Corpuscular Hgb 29.2 pg (27.0-31.0); Mean Corpuscular Volume 88.1 fL (81.0-99.0); Mean Platelet Volume 9.7 fL (7.4-10.4); Nucleated Red Blood Cells % 0 %; Platelet Count 226 10^3/uL (130-400); Red Blood Cell Count 4.63 10^6/uL (4.20-5.40); Red Cell Dist. Width 13.3 % (11.5-14.5); White Blood Cell Count 10.6 10^3/uL (4.8-10.8)
[2024-05-23 07:12] LABS: Blood Urea Nitrogen 17 mg/dl (7-17); Calcium 7.8 mg/dl (8.4-10.2); Carbon Dioxide 31 mmol/L (22-30); Chloride 98 mmol/L (98-107); Estimated Creatinine Clearance 115 ml/min; Glucose 131 mg/dl (70-99); Sodium 133 mmol/L (135-145); eGFR > 60.00
[2024-05-23 07:48] VITALS: BP 122/75
[2024-05-23 07:57] LABS: Glucose - Point of Care 128 mg/dl (70-99)
[2024-05-23] MEDS: NOVOLOG FLEXPEN-LOW RESISTANCE SC ×2 (08:00→17:21)
[2024-05-23] MEDS: LIDOCAINE 4% PATCH TOPICAL ×2 (08:06)
[2024-05-23] MEDS: VIBRAMYCIN 100 MG PO ×2 (08:07→20:18)
[2024-05-23] MEDS: DELTASONE 5 MG PO (08:07)
[2024-05-23] MEDS: MUCINEX 1200 MG PO ×2 (08:07→20:18)
[2024-05-23] MEDS: TYLENOL 1000 MG PO ×3 (08:07→21:46)
[2024-05-23] MEDS: PROTONIX 40 MG PO (08:07)
--- NOTE | 2024-05-23 09:33 | W.PN.HOSP.TC ---
Today's Communication/Plan
-
Monitor vital signs see plan
Suspect she is constipated, start laxatives
Pain control
Continue with Mucinex
Assessment / Plan
Assessment / Plan
68yo F with PMHx of insomnia, RA on lefunomide and chronic prednisone, DM came with c/o cough for 5 days and subsequent strong L subcostal pain, pleuritic, poorly responding to pain meds in ED. Managed for possible pneumonia with L small pleural
effusion
A/P:
#Possible bibasilar pneumonia with small L pleural effusion
Sepsis on admission likely 2/2 above
cw Abx
COVID-19 and influenza neg
Legionella, strep negative
Sputum Cx if possible
CT reviewed - significant patchy opacification on LLL of the lung with small effusion -x-ray of 05/20 very tiny little effusion however much improved. Advised patient to follow-up with repeat imaging outpatient and if does not improve then likely
will need Thora
Suspect pleurisy secondary to atelectasis and pneumonia. Still in pain. Tramadol now standing. Tylenol standing. Morphine as needed
leukocytosis is unreliable indicator with chronic prednisone
Lidocaine patch
check MRSA screen neg
pain control
Abdominal x-ray without any acute abnormality
. Suspect she is constipated, laxative
#Acute uncomplicated diverticulitis
given she still has pain ordered xray abdomen
Continue Zosyn
Colonoscopy in 6-8 weeks
Hyponatremia
Monitor
#L subcostal pain
PE neg
pain control
cw IS
#UTI ruled out
Ucx neg
#RA
cont home meds
#mild ALT elevation
follow LFT
DVT ppx lovenox
GI ppx pantoprazole
Full code
General: Well Developed and Pain
HEENT: Normocephalic
Respiratory: Clear to Auscultation
GI: Soft, Nondistended and Tender (LLQ)
Genito-urinary: Costovertebral Angle Tend (L)
Musculoskeletal: No Clubbing, No Cyanosis and No Edema
Neuro: Awake, Alert, Oriented and AO x 3
Psych: Calm
Anticipated Discharge: Within 24 hours
Subjective/Interval History
-
Date of Service: May 23, 2024
Feels pain is better
Objective Data
-
Labs:
Laboratory Results
05/23/24
06:33
WBC 10.6
Hgb 13.5
Hct 40.8
Plt Count 226
Sodium 133 L
Potassium 4.0
Chloride 98
Carbon Dioxide 31 H
BUN 17
Creatinine 0.6
Glucose 131 H
Calcium 7.8 L
Vital Signs:
Vital Signs
Temp Pulse Resp BP Pulse Ox
98.3 F 95 18 122/75 93
05/23/24 07:48 05/23/24 07:48 05/23/24 07:48 05/23/24 07:48 05/23/24 07:48
I&O
05/22/24 05/23/24 05/24/24
06:59 06:59 06:59
Intake Total 1540 / 1540 1200 / 1200
Balance 1540 / 1540 1200 / 1200
[2024-05-23] MEDS: FLEXERIL 5 MG PO (09:37)
[2024-05-23] MEDS: MIRALAX 17 GRAMS PO (09:38)
[2024-05-23] MEDS: ZOFRAN 4 MG IV (09:38)
[2024-05-23 11:56] LABS: Glucose - Point of Care 230 mg/dl (70-99)
[2024-05-23] MEDS: TESSALON PERLES 200 MG PO (12:17)
[2024-05-23] MEDS: NOVOLOG FLEXPEN-LOW RESISTANCE 2 UNITS SC (12:18)
--- NOTE | 2024-05-23 12:35 | CM ---
Chart reviewed and plan is for discharge to home when stable.
Plan; Home when stable.
[2024-05-23 15:02] VITALS: BP 149/73
[2024-05-23] MEDS: LOVENOX SC (16:27)
[2024-05-23 17:13] LABS: Glucose - Point of Care 118 mg/dl (70-99)
[2024-05-23 21:21] LABS: Glucose - Point of Care 132 mg/dl (70-99)
[2024-05-23] MEDS: AMBIEN 10 MG PO (21:46)
[2024-05-23 23:07] VITALS: BP 147/78
[2024-05-24] MEDS: ZOSYN 50 IV ×3 (00:04→11:59)
[2024-05-24] MEDS: ULTRAM 25 MG PO ×2 (04:35→09:12)
[2024-05-24 07:19] VITALS: BP 140/74
[2024-05-24 07:52] LABS: % Basophils 0.8 % (0-2); % Eosinophils 4.2 % (0-6); % Immature Granulocytes 2.1 % (0-0.5); % Lymphocytes 12.3 % (20.5-51.1); % Monocytes 11.6 % (1.7-9.3); Absolute Basophils 0.1 10^3/uL (0-0.2); Absolute Eosinophils 0.4 10^3/uL (0-0.7); Absolute Immature Granulocytes 0.2 10^3/uL (0-0.05); Absolute Lymphocytes 1.2 10^3/uL (1.2-3.4); Absolute Monocytes 1.1 10^3/uL (0.1-0.6); Absolute Neutrophils 6.8 10^3/uL (1.4-6.5); Hematocrit 39.9 % (37.0-47.0); Hemoglobin 13.1 g/dL (12.0-16.0); Mean Corp Hgb Conc. 32.8 g/dL (33.0-37.0); Mean Corpuscular Hgb 29.8 pg (27.0-31.0); Mean Corpuscular Volume 90.9 fL (81.0-99.0); Mean Platelet Volume 10.3 fL (7.4-10.4); Nucleated Red Blood Cells % 0 %; Platelet Count 245 10^3/uL (130-400); Red Blood Cell Count 4.39 10^6/uL (4.20-5.40); Red Cell Dist. Width 13.3 % (11.5-14.5); White Blood Cell Count 9.8 10^3/uL (4.8-10.8)
[2024-05-24 08:01] LABS: Glucose - Point of Care 119 mg/dl (70-99)
[2024-05-24 08:32] LABS: Blood Urea Nitrogen 19 mg/dl (7-17); Calcium 8.1 mg/dl (8.4-10.2); Carbon Dioxide 31 mmol/L (22-30); Chloride 97 mmol/L (98-107); Estimated Creatinine Clearance 98 ml/min; Glucose 106 mg/dl (70-99); Potassium 3.8 mmol/L (3.5-5.1); Sodium 130 mmol/L (135-145); eGFR > 60.00
[2024-05-24] MEDS: LIDOCAINE 4% PATCH TOPICAL ×2 (08:55)
[2024-05-24] MEDS: MIRALAX 17 GRAMS PO (08:55)
[2024-05-24] MEDS: NOVOLOG FLEXPEN-LOW RESISTANCE SC (08:55)
[2024-05-24] MEDS: LOVENOX SC (08:55)
[2024-05-24] MEDS: TYLENOL 1000 MG PO (08:55)
[2024-05-24] MEDS: DELTASONE 5 MG PO (08:55)
[2024-05-24] MEDS: MUCINEX 1200 MG PO (08:55)
[2024-05-24] MEDS: PROTONIX 40 MG PO (08:55)
[2024-05-24] MEDS: VIBRAMYCIN 100 MG PO (09:00)
[2024-05-24 11:51] LABS: Glucose - Point of Care 170 mg/dl (70-99)
[2024-05-24] MEDS: NOVOLOG FLEXPEN-LOW RESISTANCE 1 UNITS SC (11:57)
[2024-05-24] MEDS: TYLENOL PO (12:00)
--- NOTE | 2024-05-24 12:17 | W.PN.HOSP.TC ---
Today's Communication/Plan
-
Monitor vital signs see plan
Switch antibiotics to oral
Discharge today
Pain control
Time of discharge 37 minutes
Assessment / Plan
Assessment / Plan
68yo F with PMHx of insomnia, RA on lefunomide and chronic prednisone, DM came with c/o cough for 5 days and subsequent strong L subcostal pain, pleuritic, poorly responding to pain meds in ED. Managed for possible pneumonia with L small pleural
effusion
A/P:
#Possible bibasilar pneumonia with small L pleural effusion
Sepsis on admission likely 2/2 above
cw Abx
COVID-19 and influenza neg
Legionella, strep negative
Sputum Cx if possible
CT reviewed - significant patchy opacification on LLL of the lung with small effusion -x-ray of 05/20 very tiny little effusion however much improved. Advised patient to follow-up with repeat imaging outpatient and if does not improve then likely
will need Thora
Suspect pleurisy secondary to atelectasis and pneumonia. Patient has not been improving. Tramadol now standing. Tylenol standing. Morphine as needed
leukocytosis is unreliable indicator with chronic prednisone
Lidocaine patch
check MRSA screen neg
pain control
Abdominal x-ray without any acute abnormality
. Suspect she is constipated, laxative
Tolerated Zosyn. Switch antibiotics to Augmentin and dc
#Acute uncomplicated diverticulitis
given she still has pain ordered xray abdomen
on Zosyn
Colonoscopy in 6-8 weeks
Hyponatremia
Monitor
#L subcostal pain
PE neg
pain control
cw IS
#UTI ruled out
Ucx neg
#RA
cont home meds
#mild ALT elevation
follow LFT
DVT ppx lovenox
GI ppx pantoprazole
Full code
General: Well Developed and Pain
HEENT: Normocephalic
Respiratory: Clear to Auscultation
GI: Soft, Nondistended and Tender (LLQ)
Genito-urinary: Costovertebral Angle Tend (L)
Musculoskeletal: No Clubbing, No Cyanosis and No Edema
Neuro: Awake, Alert, Oriented and AO x 3
Psych: Calm
Anticipated Discharge: Today
Subjective/Interval History
-
Date of Service: May 24, 2024
denies pain
Objective Data
-
Labs:
Laboratory Results
05/24/24
06:47
WBC 9.8
Hgb 13.1
Hct 39.9
Plt Count 245
Sodium 130 L
Potassium 3.8
Chloride 97 L
Carbon Dioxide 31 H
BUN 19 H
Creatinine 0.7
Glucose 106 H
Calcium 8.1 L
Vital Signs:
Vital Signs
Temp Pulse Resp BP Pulse Ox
97.9 F 90 18 140/74 97
05/24/24 07:19 05/24/24 07:19 05/24/24 07:19 05/24/24 07:19 05/24/24 07:19
I&O
05/23/24 05/24/24 05/25/24
06:59 06:59 06:59
Intake Total 1200 / 1200 1200 / 1200
Balance 1200 / 1200 1200 / 1200
--- NOTE | 2024-05-24 12:33 | W.DCSUMMARY ---
Discharge Summary
Discharge Data
Date of Admission: 05/18/24
Date of Discharge: 05/24/24
-
Pending Results: No
Hospital Course
68-year-old female with past medical history of insomnia, rheumatoid arthritis, diabetes mellitus came to the hospital with acute diverticulitis and bibasilar pneumonia. Patient was initially started with IV antibiotic which was later transitioned
to oral antibiotics prior to discharge. Patient also had significant pleurisy on this hospitalization which over time continue to improve with pain medications. She also had small left pleural effusion which was not significant for thoracentesis.
Over time patient symptoms continue to improve and she was discharged home with instructions to follow-up closely with PCP pulmonary and GI outpatient. She was instructed to get repeat chest imaging to ensure her pleural effusion and pneumonia is
resolving.
Discharge Plan
-
Patient Disposition: Home (Routine Discharge)
Discharge Diagnosis/Procedures: Community-acquired pneumonia with pleurisy
Small left pleural effusion
Acute uncomplicated diverticulitis
Hyponatremia
Condition: Fair
Diet: As tolerated
Activity: As tolerated
Driving Restrictions: As prior to admission
Blood Work: BMP next week with primary care provider
Others Tests: Repeat chest xray in 4 weeks
Referrals:
Jameson Foss MD [Active] - in four to six weeks
Keegan Wilde MD [Active] -
Kim Logan DO [Family Provider] - in less than 1 week
Prescriptions:
New
lidocaine 4 % Adhesive Patch,Medicated
2 patch topical DAILY Qty: 30 0RF
polyethylene glycol 3350 17 gram Powder In Packet
17 g PO DAILY Qty: 0 0RF
benzonatate 100 mg Capsule
200 mg PO TIDPRN PRN (Reason: cough) Qty: 30 0RF
pantoprazole 40 mg Tablet,Delayed Release (Dr/Ec)
40 mg PO DAILY Qty: 30 0RF
guaifenesin 600 mg Tablet Extended Release 12hr
1,200 mg PO Q12 7 Days Qty: 28 0RF
tramadol 50 mg Tablet
25 mg PO Q6H 7 Days Qty: 14 0RF
acetaminophen [Tylenol Extra Strength] 500 mg Tablet
1,000 mg PO TID Qty: 0 0RF
amoxicillin-pot clavulanate 875-125 mg tablet
1 tab PO Q12H 5 Days Qty: 10 0RF
Continued
prednisone 5 mg Tablet
5 mg PO DAILY
leflunomide 20 mg Tablet
20 mg PO DAILY
zolpidem 12.5 mg Tablet,Ext Release Multiphase
12.5 mg PO HS
pioglitazone 15 mg Tablet
15 mg PO DAILY
torsemide 10 mg Tablet
10 mg PO MOTUWETHFR
therapeutic multivitamin Tablet
1 tab PO DAILY
aspirin 81 mg Tablet,Delayed Release (Dr/Ec)
81 mg PO DAILY
simvastatin 40 mg Tablet
40 mg PO HS
ibuprofen-acetaminophen [Advil Dual Action] 125-250 mg Tablet
2 tab PO DAILYPRN PRN (Reason: mild pain)
Discharge Orders:
Discharge Patient (As Directed); Ordered 05/24/24
Ordered By: Carl Torres
Discharge Date and Time
Discharge Date/Time: 05/24/24 14:28
Print Language: [place]
[2024-05-24 14:06] VITALS: BP 147/79
--- NOTE | 2024-05-24 14:33 | CM ---
Pt medically stable for d/c today.
Met w/ pt and spouse at bedside, agreeable
IMM reviewed, pt given copy, copy placed in chart
No CM needs identified at this time
Plan: Home; no needs
== END 2024-05-24 14:28 | disposition home or self-care (01) | DRG 871 ==
LOC: 4 WEST ACU 04:17
PROVIDERS: Internal Medicine; Student in an Organized Health Care Education/Training Program; ADMITTING PHYSICIAN Hospitalist; ATTENDING PHYSICIAN Internal Medicine; EMERGENCY PHYSICIAN Emergency Medicine; FAMILY PHYSICIAN Family Medicine
DX: A41.9 Sepsis, unspecified organism (principal); J18.9 Pneumonia, unspecified organism; E87.1 Hypo-osmolality and hyponatremia; J90 Pleural effusion, not elsewhere classified; K57.32 Diverticulitis of large intestine without perforation or abscess without bleeding; Z79.84 Long term (current) use of oral hypoglycemic drugs; M06.9 Rheumatoid arthritis, unspecified; E11.9 Type 2 diabetes mellitus without complications; Z85.3 Personal history of malignant neoplasm of breast; Z87.891 Personal history of nicotine dependence; Z88.0 Allergy status to penicillin; Z11.52 Encounter for screening for COVID-19; K21.9 Gastro-esophageal reflux disease without esophagitis
CPT/HCPCS: 71046; 71101; 71275; 74019; 74176; 80048; 80053; 81003; 81015; 82962; 83605; 83880; 84145; 84484; 85025; 85652; 87040; 87070; 87086; 87449; 87502; 87811; 87899; 93005; 96374; 96375; 97116; 97162; 97166; 97535; 99285; Q9967